=== PATIENT | female | born 1990 | race Caucasian/White ===

== ENCOUNTER 2018-04-21 16:42 | Emergency (ER) | payer BC ==
[~2018-04-21] VITALS: Ht 185.4 cm; Wt 111.4 kg
[2018-04-21 16:57] VITALS: Ht 185.4 cm; Wt 111.4 kg
[2018-04-21 18:15] LABS: HEMOGLOBIN 15.4 g/dL (12-16); RBC 5.14 10x6/uL (4.00-5.40); WBC 6.5 10x3/uL (4.8-10.8)
[2018-04-21 18:16] LABS: BASOPHILS 0.5 % (0-2); EOSINOPHILS 0.8 % (0-7); HEMATOCRIT 45.4 % (36.0-48.0); IMMATURE GRANULOCYTES 0.2 % (0-5); LYMPHOCYTES 25.6 % (15-50); MCHC 33.9 g/dL (31.0-37.0); MCV 88.3 fL (80.0-100.0); MEAN PLATELET VOLUME 11.1 fL (7.4-10.4); MONOCYTES 5.7 % (2-11); NEUTROPHILS 67.2 % (40-80); PLATELET COUNT 237 10x3/uL (130-400)
[2018-04-21 19:16] LABS: CALC OSMOLALITY 276 mosm/kg (275-300); CREATININE - SERUM 0.8 mg/dL (0.6-1.3); GLUCOSE 85 mg/dL (74-106); POTASSIUM - SERUM 4.1 mmol/L (3.5-5.1); SODIUM 140 mmol/L (136-145); UREA NITROGEN 10 mg/dL (7-18); eGFR NON AFRICAN AMERICAN > 90 mL/min (90-120)
[2018-04-21 19:17] LABS: ALBUMIN 4.1 g/dL (3.4-5.0); ALKALINE PHOSPHATASE 71 U/L (46-116); ALT (SGPT) 45 U/L (10-68); BILIRUBIN - TOTAL 0.23 mg/dL (0.2-1.3); CALCIUM 9.4 mg/dL (8.5-10.1); CARBON DIOXIDE 26.2 mmol/L (21.0-32.0); CHLORIDE - SERUM 104 mmol/L (98-107); PROTEIN - SERUM 7.6 g/dL (6.4-8.2)
[2018-04-21 19:52] LABS: APPEARANCE CLEAR (CLEAR); BILIRUBIN NEGATIVE (NEGATIVE); COLOR YELLOW (YELLOW); GLUCOSE NEGATIVE (NEGATIVE); KETONE NEGATIVE (NEGATIVE); NITRITE NEGATIVE (NEGATIVE); PROTEIN NEGATIVE (NEGATIVE); UROBILINOGEN NORMAL (NORMAL)
[2018-04-21 20:35] LABS: UDS - AMPHET NEGATIVE QUAL (NEGATIVE); UDS - BARB NEGATIVE QUAL (NEGATIVE); UDS - BENZO NEGATIVE QUAL (NEGATIVE); UDS - COCAINE NEGATIVE QUAL (NEGATIVE)
[2018-04-21 20:36] LABS: UDS - OPIATE NEGATIVE QUAL (NEGATIVE); UDS - PCP NEGATIVE QUAL (NEGATIVE); UDS - THC POSITIVE QUAL (NEGATIVE)
[2018-04-22 03:16] VITALS: BP 115/81
== END 2018-04-22 03:49 ==
LOC: D.ER 16:42
PROVIDERS: Family Medicine
DX: R45.851 Suicidal ideations (principal)

== ENCOUNTER 2020-02-01 15:04 | Emergency (ER) | payer MEDICAID ==
[~2020-02-01] VITALS: Ht 185.4 cm; Wt 109.1 kg
[2020-02-01 15:38] VITALS: BP 137/97; Ht 185.4 cm; Wt 109.1 kg
[2020-02-01 17:49] LABS: BILIRUBIN NEGATIVE (NEGATIVE); GLUCOSE NEGATIVE (NEGATIVE); KETONE NEGATIVE (NEGATIVE); NITRITE NEGATIVE (NEGATIVE); SPECIFIC GRAVITY 1.025 (1.005-1.020); UROBILINOGEN NORMAL (NORMAL)
[2020-02-01 17:51] LABS: BACTERIA MANY /hpf (NEGATIVE); RED CELLS - URINE 0-5 /hpf (0-5); WHITE CELLS - URINE 0-5 /hpf (NEGATIVE)
== END 2020-02-01 17:45 | disposition home or self-care (01) ==
LOC: D.ER 15:04
PROVIDERS: Family Medicine
DX: N75.0 Cyst of Bartholin's gland (principal)

== ENCOUNTER 2020-04-19 02:48 | Emergency (ER) | payer MEDICAID ==
[~2020-04-19] VITALS: Ht 185.4 cm; Wt 104.5 kg
[2020-04-19 02:50] VITALS: Ht 185.4 cm; Wt 104.5 kg
[2020-04-19 03:04] LABS: BASOPHILS 0.2 % (0-2); EOSINOPHILS 1.2 % (0-7); HEMATOCRIT 44.4 % (36.0-48.0); HEMOGLOBIN 15.1 g/dL (12-16); IMMATURE GRANULOCYTES 0.2 % (0-5); LYMPHOCYTES 22.6 % (15-50); MCH 31.8 pg (26.0-34.0); MCV 93.5 fL (80.0-100.0); MEAN PLATELET VOLUME 10.4 fL (7.4-10.4); MONOCYTES 6.1 % (2-11); NEUTROPHILS 69.7 % (40-80); PLATELET COUNT 247 10x3/uL (130-400); RBC 4.75 10x6/uL (4.00-5.40); RDW 13.1 % (11.5-14.5)
[2020-04-19 03:12] LABS: AMORPHOUS SEDIMENT <1+ /lpf (NONE SEEN); BACTERIA MANY /hpf (NONE SEEN); BILIRUBIN NEGATIVE (NEGATIVE); EPITHELIAL CELLS RARE /hpf (0-5); KETONE NEGATIVE (NEGATIVE); NITRITE POSITIVE (NEGATIVE); RED CELLS - URINE NONE SEEN /hpf (0-5); UROBILINOGEN NORMAL (NORMAL)
[2020-04-19 03:15] LABS: HCG URINE NEGATIVE (NEGATIVE)
[2020-04-19 03:23] LABS: CALC OSMOLALITY 278 mosm/kg (275-300); CALCIUM 9.1 mg/dL (8.5-10.1); CARBON DIOXIDE 24.2 mmol/L (21.0-32.0); CHLORIDE - SERUM 104 mmol/L (98-107); CREATININE - SERUM 0.9 mg/dL (0.6-1.3); GLUCOSE 99 mg/dL (74-106); POTASSIUM - SERUM 3.5 mmol/L (3.5-5.1); SODIUM 140 mmol/L (136-145); UREA NITROGEN 13 mg/dL (7-18); eGFR NON AFRICAN AMERICAN 79 mL/min (90-120)
[2020-04-19 03:31] LABS: ALBUMIN 3.9 g/dL (3.4-5.0); ALKALINE PHOSPHATASE 67 U/L (30-120); ALT (SGPT) 37 U/L (10-68); AMYLASE - SERUM 46 U/L (25-115); BILIRUBIN - TOTAL 0.25 mg/dL (0.2-1.3); LIPASE 132 U/L (73-393); PROTEIN - SERUM 7.7 g/dL (6.4-8.2)
[2020-04-19 03:44] LABS: TROPONIN-I < 0.017 ng/mL (0.000-0.060)
[2020-04-19 04:18] LABS: UDS - AMPHET NEGATIVE QUAL (NEGATIVE); UDS - BARB NEGATIVE QUAL (NEGATIVE); UDS - BENZO NEGATIVE QUAL (NEGATIVE); UDS - COCAINE NEGATIVE QUAL (NEGATIVE); UDS - OPIATE NEGATIVE QUAL (NEGATIVE); UDS - PCP NEGATIVE QUAL (NEGATIVE); UDS - THC POSITIVE QUAL (NEGATIVE)
[2020-04-19] MEDS ORDERED: OMNICEF300 MG PO (05:11)
[2020-04-19 06:06] VITALS: BP 121/74
== END 2020-04-19 06:06 | disposition home or self-care (01) ==
LOC: D.ER 02:48
PROVIDERS: Family Medicine
DX: N39.0 Urinary tract infection, site not specified (principal); R10.11 Right upper quadrant pain; R19.7 Diarrhea, unspecified